=== PATIENT | female | born 1950 | race Hispanic/Latino ===

== ENCOUNTER 2019-12-14 10:34 | Outpatient (CLI) | payer OTHER ==
--- NOTE | 2019-12-14 14:27 | CT ---
CT ABDOMEN AND PELVIS WITHOUT IV CONTRAST: 12/14/19 INDICATIONS: Hematuria. No comparisons. FINDINGS: The lung bases are clear. Liver, spleen and pancreas unremarkable. Small dystrophic calcification in the mid right lobe of the liver noted. Stomach and duodenum unremarkable. Adrenal glands normal. Kidneys unremarkable. There is no evidence of urinary tract calculus. There is no evidence of hydrone phrosis. Renal mass or neoplasm may not be apparent on this unenhanced study. A contrasted exam is ghosh ggested given the history of hematuria. Urinary bladder is contracted and not adequately evaluated. Small bowel loops normal caliber. Appendix appears normal. The colon appears normal. The colon is unr emarkable. Scattered diverticula are noted without diverticulitis. Aorta normal caliber with atherosclerotic calcification. No adenopathy, mass or free fluid apparent. Images through the pelvis show unremarkable uterus and adnexa. Osseous structures unremarkable. IMPRESSION: No evidence of acute process. Renal masses may not be apparent on this unenhanced CT. POS: [facility]
== END 2019-12-14 10:35 | disposition home or self-care (01) ==
LOC: SCSCT 10:34
PROVIDERS: ATTEND Internal Medicine
DX: R31.0 Gross hematuria (principal); N23 Unspecified renal colic
CPT/HCPCS: 74176